=== PATIENT | female | born 1955 | race Caucasian/White ===

== ENCOUNTER 2022-04-17 11:03 | Inpatient (IN) | payer BC, MEDICARE ==
[2022-04-17 12:28] LABS: ALT (SGPT) 12 U/L (8-55); AST (SGOT) 12 U/L (5-34); Albumin 2.6 g/dL (3.4-4.8); Alkaline Phosphatase 51 U/L (40-110); Anion Gap 11 mmol/L (10-20); BUN (Urea Nitrogen) 47 mg/dL (9.8-20.1); Bilirubin, Total 0.8 mg/dL (0.2-1.2); Calc. Creatinine Clearance 0 mL/min (70-130); Calcium 7.8 mg/dL (7.8-10.44); Carbon Dioxide 26 mmol/L (23-31); Chloride 111 mmol/L (98-107); Estimated GFR 97; Globulin 1.8 g/dL (2.4-3.5); Glucose 115 mg/dL (80-115); INR-International Normal Ratio 1.1; Lipase 10 U/L (8-78); PTT 29.4 sec (22.9-36.1); Potassium 3.5 mmol/L (3.5-5.1); Protein, Total 4.4 g/dL (5.8-8.1); Sodium 144 mmol/L (136-145)
[2022-04-17 12:29] LABS: #Lymphocytes 0.8 thou/uL (1.20-3.40); #Monocytes 0.1 thou/uL (0.11-0.59); #Neutrophils 4.5 thou/uL (1.40-6.50); %Basophils 0.1 % (0.0-1.0); %Eosinophils 0.1 % (0.0-10.0); %Lymphocytes 15.4 % (21.0-51.0); %Monocytes 1.9 % (0.0-10.0); %Neutrophils 82.5 % (42.0-75.0); Hemoglobin 7.5 g/dL (12.0-16.0); Mean Corpuscular Hemoglobin 33.3 pg (27.0-31.0); Mean Corpuscular Volume 92.4 fl (78.0-98.0); Mean Platelet Volume 8.3 fL (7.4-10.4); Platelet Count 209 10x3/uL (130-400); RBC Distribution Width 11.4 % (11.5-14.5); Red Blood Cell (RBC) Count 2.26 mill/uL (4.20-5.40); White Blood Cell (WBC) Count 5.4 10x3/uL (4.8-10.8)
[2022-04-17] MEDS ORDERED: Promethazine HCl 12.5 MG in Sodium Chloride 0.9% 50 ML IVPB PRN (17:46)
[2022-04-17] MEDS ORDERED: GoLYTELY 4,000 ml Bottle PO SCH ×2 (18:00→21:00)
[2022-04-17] MEDS: Sodium Chloride 0.9% 1,000 ML IV SCH (18:11)
[2022-04-17] MEDS ORDERED: Acetaminophen 325 MG TAB ONE (19:50)
[2022-04-17] MEDS: Acetaminophen 325 MG TAB PO PRN (20:05)
[2022-04-17 20:50] LABS: Hemoglobin 6.8 g/dL (12.0-16.0)
[2022-04-17 22:34] VITALS: BMI 24.1
[2022-04-18] MEDS: Ondansetron PF 4 MG/2 ML Vial IVP PRN ×2 (01:02→06:49)
[2022-04-18] MEDS: Sodium Chloride 0.9% 1,000 ML IV SCH ×3 (01:27→16:46)
[2022-04-18] MEDS: Pantoprazole 40 MG VIAL IVP SCH ×3 (01:27→20:37)
[2022-04-18 02:02] LABS: Hemoglobin 7.7 g/dL (12.0-16.0)
[2022-04-18 05:23] LABS: #Lymphocytes 1.3 thou/uL (1.20-3.40); #Monocytes 0.2 thou/uL (0.11-0.59); #Neutrophils 2.2 thou/uL (1.40-6.50); %Basophils 0.9 % (0.0-1.0); %Eosinophils 1.1 % (0.0-10.0); %Monocytes 6.4 % (0.0-10.0); %Neutrophils 57.6 % (42.0-75.0); Hemoglobin 7.4 g/dL (12.0-16.0); Mean Corpuscular HGB CONC 35.5 g/dL (32.0-36.0); Mean Corpuscular Volume 93.1 fl (78.0-98.0); Mean Platelet Volume 8.1 fL (7.4-10.4); Platelet Count 175 10x3/uL (130-400); RBC Distribution Width 12.1 % (11.5-14.5); Red Blood Cell (RBC) Count 2.23 mill/uL (4.20-5.40); White Blood Cell (WBC) Count 3.8 10x3/uL (4.8-10.8)
[2022-04-18 05:33] LABS: Anion Gap 7 mmol/L (10-20); BUN (Urea Nitrogen) 38 mg/dL (9.8-20.1); Calc. Creatinine Clearance 85 mL/min (70-130); Calcium 7.6 mg/dL (7.8-10.44); Carbon Dioxide 30 mmol/L (23-31); Chloride 111 mmol/L (98-107); Estimated GFR 95; Glucose 102 mg/dL (80-115); Potassium 3.1 mmol/L (3.5-5.1); Sodium 145 mmol/L (136-145)
[2022-04-18] MEDS ORDERED: Potassium Chloride 20 MEQ TAB PO SCH (08:15)
[2022-04-18] MEDS: Levothyroxine Sodium 100 MCG TAB PO SCH ×2 (08:20→12:31)
[2022-04-18] MEDS ORDERED: Non-Formulary Item 1 EACH (Magnesium Oxide [Magnesium Oxide] 400 MG Tablet) PO SCH (09:00)
[2022-04-18] MEDS ORDERED: PROPOFOL 200 MG/20 ML VIAL ONE (11:16)
[2022-04-18] MEDS: Magnesium Oxide 400 MG TAB PO SCH (12:31)
[2022-04-18 20:11] LABS: Hemoglobin 7.1 g/dL (12.0-16.0)
[2022-04-18] MEDS: Acetaminophen 325 MG TAB PO PRN (21:51)
[2022-04-19] MEDS: Sodium Chloride 0.9% 1,000 ML IV SCH (03:38)
[2022-04-19] MEDS: Levothyroxine Sodium 100 MCG TAB PO SCH ×2 (06:12→09:31)
[2022-04-19 07:22] LABS: Hemoglobin 7.7 g/dL (12.0-16.0); Platelet Count 153 10x3/uL (130-400)
[2022-04-19] MEDS ORDERED: Electrolyte Replacement Protocol 1 EACH FS SCH (07:45)
[2022-04-19] MEDS ORDERED: Potassium Chloride 20 MEQ TAB PO SCH (08:15)
[2022-04-19] MEDS: Magnesium Oxide 400 MG TAB PO SCH (09:31)
[2022-04-19] MEDS: Pantoprazole 40 MG VIAL IVP SCH (09:32)
[2022-04-19 11:56] VITALS: BP 133/63; TEMP 98
[2022-04-19 13:17] LABS: Hemoglobin 8.6 g/dL (12.0-16.0)
[2022-04-20] MEDS ORDERED: Levothyroxine Sodium 100 MCG TAB PO SCH (06:00)
== END 2022-04-19 16:47 | disposition home or self-care (01) | DRG 378 ==
LOC: SUATTDRO 11:03 → ERS 11:03 → ERHOLD 14:22 → 2SW 04-18 00:44
PROVIDERS: ADMIT Internal Medicine; ATTEND Nurse Practitioner Family
PROC: 30233N1 Transfusion of Nonautologous Red Blood Cells into Peripheral Vein, Percutaneous Approach (ICD-10-PCS; 2022-04-17)
PROC: 0W3P8ZZ Control Bleeding in Gastrointestinal Tract, Via Natural or Artificial Opening Endoscopic (ICD-10-PCS; principal; 2022-04-18)
DX: K28.4 Chronic or unspecified gastrojejunal ulcer with hemorrhage (principal); D62 Acute posthemorrhagic anemia; Z20.822 Contact with and (suspected) exposure to COVID-19; K44.9 Diaphragmatic hernia without obstruction or gangrene; K25.9 Gastric ulcer, unspecified as acute or chronic, without hemorrhage or perforation; E89.0 Postprocedural hypothyroidism; E66.9 Obesity, unspecified; D64.9 Anemia, unspecified; Z98.84 Bariatric surgery status; Z68.25 Body mass index [BMI] 25.0-25.9, adult; Z88.0 Allergy status to penicillin; Z91.014 Allergy to mammalian meats; Z90.49 Acquired absence of other specified parts of digestive tract; Z90.710 Acquired absence of both cervix and uterus; Z82.49 Family history of ischemic heart disease and other diseases of the circulatory system
CPT/HCPCS: 36415; 36430; 71045; 80048; 80053; 83690; 84484; 85014; 85018; 85025; 85049; 85610; 85730; 86850; 86900; 86901; 93005; C9113; J2405; J2704; J7050; P9016; U0003; U0005